=== PATIENT | male | born 1955 | race Asian ===

== ENCOUNTER → 2020-04-26 13:59 | Outpatient (BNVA) | payer OTHER, SELFPAY | PROVIDERS: PCP Internal Medicine; Visit Provider Urology | DX: Z13.89 Encounter for screening for other disorder (principal) ==

== ENCOUNTER → 2021-05-03 12:53 | Outpatient (BNVA) | payer OTHER, SELFPAY | PROVIDERS: Visit Provider Urology ==

== ENCOUNTER → 2022-05-01 14:53 | Outpatient (BNVA) | payer BC, SELFPAY | PROVIDERS: PCP Obstetrics & Gynecology; Visit Provider Urology | DX: Z13.89 Encounter for screening for other disorder (principal) ==

== ENCOUNTER 2023-06-30 12:59 | Outpatient (AMB) | payer BC, SELFPAY ==
--- NOTE | 2023-06-30 13:05 | MHC.OFFVIS ---
Intake Intake Visit Reasons: 1Y PSA(set)vm to confirm Intake Note: Patient is Present for Follow Up PSA Urology Medication: Dutasteride, Sildenafil Antibiotic Allergies: None Blood Thinners: None Confirmed Pharmacy: [facility] PVR: 13 Patient was present for Appointment today Due to Provider having surgery patient agreed to have telephone appt for later on today Allergies No Known Allergies Allergy (Verified 06/30/23 13:09) HPI HPI Comments History of Present Illness Details Can is very pleasant [place] male. He is a patient of . He is seen for the following urologic conditions - lower urinary tract symptoms - elevated PSA - erectile dysfunction Telemedicine evaluation 15 minute consultation [employer] bety Video attempted Continue good response to dutasteride Erections appeared to be reasonable using dutasteride on Thursday, Thursday, Thursday PSA well controlled Twelve month follow-up PSA Elevated PSA/Abnormal DENNYS: He presents for further evaluation of elevated PSA and lower urinary tract symptoms Laboratory investigations include Prior urologist recommend TRUS biopsy 07/13 10.6, 07/13 - US 70gm prostate, 09/12 5.5 with 5AR, 04/14 3.0 5AR. - 04/15 2.8, 04/16 2.1, 04/17 3.1, 06/20 2.6 Individualized Prostate Cancer Risk Calculator 5-10% high risk, Discussion regarding TRUS biopsy performed, Discussed use of 5AR to help differentiate prostate cancer from benign disease. He would like to try this and understands the small risk associated with a delay in diagnosis. Symptoms include 06/15 , incomplete emptying, weak stream, x 2, and are stable. Therapeutic plan will be continued PSA surveillance with 5 AR Review of Systems Const All systems reviewed & are unremarkable except as noted in HPI and below Reports no additional complaints Resp Reports no additional complaints GI Reports no additional complaints Reports as per HPI Musc Reports no additional complaints Physical Exam Telemedicine evaluation Appropriate responses Regular breathing rate and rhythm HEENT Head: Yes normal to inspection Ears: hearing grossly normal bilaterally Eyes General: appearance normal, both eyes and all related structures Neck Neck: Yes normal visual inspection Chest Chest palpation & inspection: normal inspection of the chest Resp Effort & Inspection: normal respiratory effort and able to speak in complete sentences Office Procedures Post Void Residual Post Residual Void Post Void Residual (PVR): 13 [id number] Void Residual by ultrasound Assessment & Plan Assessment & Plan (1) BPH w urinary obs/LUTS: Code(s): N40.1 - Benign prostatic hyperplasia with lower urinary tract symptoms; N13.8 - Other obstructive and reflux uropathy (2) Elevated PSA: Code(s): R97.20 - Elevated prostate specific antigen [PSA] Plan Continue dutasteride 3 times a week Orders: Orders AMB Post Void Residual by ultrasound Today N13.8 - Other obstructive and reflux uropathy, N40.1 - Benign prostatic hyperplasia with lower urinary tract symptoms Prostate Specific Antigen 364 Days N13.8 - Other obstructive and reflux uropathy, N40.1 - Benign prostatic hyperplasia with lower urinary tract symptoms Patient Instructions: Imaging studies, laboratory and physical exam results were discussed and reviewed in detail. No major barriers to patient understanding were identified. An opportunity to ask questions regarding the treatment plan was provided. All questions were answered. The patient expressed understanding and agreement with the above treatment plan. The patient is aware they should contact our office by phone for worsening of their current condition or the appearance of new urologic symptoms. Compliance is encouraged with any medications and followup testing that is ordered. It is a privilege to participate in the urologic care of your patient. If you have any questions or concerns regarding treatment for the above conditions, or other urologic issues, please do not hesitate to contact me. The office telephone contact is [phone]. This note is constructed using voice recognition software. While every effort has been made to ensure accuracy group reservations coordinator errors may have been included. Yours sincerely, Dr Satish Mueller MD, [facility] - Urology Providers of Expert, Compassionate Care for the Genitourinary System Telehealth Telehealth Location of provider rendering services: practice address Location of patient: address on file Patient Identification confirmed using: Name, : Yes Telehealth method: video Patient verbally consented to treatment: Yes Patient verbally consented to billing insurance company: Yes Patient informed of any privacy concerns related to visit: Yes Coding Level of Care Code Tele Est Pt Level 4 (31879) Diagnoses BPH w urinary obs/LUTS N40.1; N13.8 Elevated PSA R97.20 CPT Codes Post Residual Void - PVR CPT Code: 01177-Gngq Void Residual by ultrasound ([id number])
== END 2023-06-30 16:02 | disposition home or self-care (01) ==
PROVIDERS: Visit Provider Urology
DX: N40.1 Benign prostatic hyperplasia with lower urinary tract symptoms (principal); N13.8 Other obstructive and reflux uropathy; R97.20 Elevated prostate specific antigen [PSA]
CPT/HCPCS: 99213

== ENCOUNTER → 2023-06-30 12:59 | Outpatient (BNVA) | payer BC, SELFPAY | PROVIDERS: Visit Provider Urology | DX: N40.1 Benign prostatic hyperplasia with lower urinary tract symptoms (principal); N13.8 Other obstructive and reflux uropathy; R97.20 Elevated prostate specific antigen [PSA] | CPT/HCPCS: 51798 ==